=== PATIENT | female | born 1985 | race Caucasian/White ===

== ENCOUNTER 2016-06-27 21:20 | Emergency (ER) | payer OTHER ==
[2016-06-27 21:32] VITALS: BMI 35.7
--- NOTE | 2016-06-27 21:37 | PDOC ---
Rapid Medical Evaluation Chief Complaint: Lightheaded Medical Evaluation: Allergies Allergy/AdvReac Type Severity Reaction Status Date / Time shellfish derived Allergy Verified 06/27/16 21:30 Vital Signs Temp Pulse Resp BP Pulse Ox 98.4 F 113 H 20 155/83 99 06/27/16 21:30 06/27/16 21:30 06/27/16 21:30 06/27/16 21:30 06/27/16 21:30 06/27/16 21:35 RME Note: I have performed a brief, in-person evaluation of this patient . This patient presents with CC: 35 weeks ; with abd cramping; recently ; lightheadiness Pertinent PE findings are: Rapid HR, I have ordered: sent directly to L&D The patient will proceed to ED for further evaluation.
[2016-06-27 23:15] VITALS: TEMP 98.2
[2016-06-28] MEDS ORDERED: SODIUM CHLORIDE 1,000 ML IV STA (00:11)
[2016-06-28 00:59] LABS: URINE APPEARANCE CLEAR; URINE BILIRUBIN NEGATIVE (NEGATIVE); URINE BLOOD NEGATIVE (NEGATIVE); URINE COLOR YELLOW; URINE GLUCOSE (UA) NEGATIVE (NEGATIVE); URINE KETONE TRACE (NEGATIVE); URINE LEUK ESTERASE NEGATIVE (NEGATIVE); URINE NITRITE NEGATIVE (NEGATIVE); URINE UROBILINOGEN NEGATIVE E.U./dl (0.2-1.0)
[2016-06-28 01:07] LABS: URINE PROTEIN 1+ (NEGATIVE)
[2016-06-28 01:08] LABS: URINE MUCUS FEW; URINE RBC <1 /hpf (0-3); URINE WBC 4 /hpf (3-5)
[2016-06-28 01:09] LABS: BASOPHIL 0.2 % (0-2.0); EOSINOPHIL 1.1 % (0-4.5); MCH 31.9 pg (25.7-33.7); MEAN CELL VOLUME 93.7 fl (80-96); MEAN PLT VOLUME 7.5 fl (7.5-11.1); NEUTROPHILS 66.4 % (42.8-82.8); PLATELET COUNT 226 K/MM3 (134-434); RDW 13.6 % (11.6-15.6); WHITE BLOOD COUNT 9.3 K/mm3 (4.0-10.0)
--- NOTE | 2016-06-28 01:10 | PDOC ---
History of Present Illness - History of Present Illness Initial Comments: 06/28/16 01:40 The patient is a 31 year old female, 35 weeks , , with a significant past medical history of asthma and ectopic (2009), who presents to the emergency department with abdominal cramping, lightheadedness and nausea after being cleared by labor and delivery (RN Rosanne Marquez) with heart tone of 145 and patient's BP of 123/69. 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 She reports eating [place] food at 7:30PM and states she then developed a pain to her left groin. The patient denies vaginal bleeding. She denies chest pain, shortness of breath, headache and dizziness. She denies fever, chills, nausea, vomit, diarrhea and constipation. She denies dysuria, frequency, urgency and hematuria. Allergies: NKDA Past surgical history: appendectomy, cyst removed from right breast <Elena Garcia - Last Filed: 06/28/16 01:40> <Chen Hinojosa - Last Filed: 06/28/16 01:52> - General Chief Complaint: Labor Assessment Stated Complaint: 35WKS/LIGHTHEADED/BLURRY VISION Time Seen by Provider: 06/27/16 21:37 Past History <Elena Garcia - Last Filed: 06/28/16 01:40> - Past Medical History Asthma: Yes Psychiatric Problems: Yes (bipolar ADHD) - Surgical History Abdominal Surgery: Yes (ECTOPIC ) Appendectomy: Yes - Psycho/Social/Smoking Cessation Hx Anxiety: Yes Suicidal Ideation: No Smoking Status: Yes Smoking History: Never smoked Number of Cigarettes Smoked Daily: 5 Information on smoking cessation initiated: No <Chen Hinojosa - Last Filed: 06/28/16 01:52> - Past Medical History Allergies/Adverse Reactions: Allergies Allergy/AdvReac Type Severity Reaction Status Date / Time shellfish derived Allergy Verified 06/27/16 21:30 Home Medications: Ambulatory Orders Clonazepam [Klonopin] 0.5 mg PO DAILY 07/05/12 Topiramate [Topamax] 200 mg PO DAILY 07/05/12 Review of Systems - Review of Systems Able to Perform ROS?: Yes Comments:: CONSTITUTIONAL: Absent: fever, chills, diaphoresis, generalized weakness, malaise, loss of appetite HEENT: Absent: rhinorrhea, nasal congestion, throat pain, throat swelling, difficulty swallowing, mouth swelling, ear pain, eye pain, visual Changes CARDIOVASCULAR: (+) lightheadedness, Absent: chest pain, syncope, palpitations, irregular heart rate, peripheral edema RESPIRATORY: Absent: cough, shortness of breath, dyspnea with exertion, orthopnea, wheezing, stridor, hemoptysis GASTROINTESTINAL: (+) abdominal cramping, nausea, Absent: abdominal distension, vomiting, diarrhea, constipation, melena, hematochezia GENITOURINARY: Absent: dysuria, frequency, urgency, hesitancy, hematuria, flank pain, genital pain MUSCULOSKELETAL: Absent: myalgia, arthralgia, joint swelling SKIN: Absent: rash, itching, pallor HEMATOLOGIC/IMMUNOLOGIC: Absent: easy bleeding, easy bruising, lymphadenopathy, frequent infections ENDOCRINE: Absent: unexplained weight gain, unexplained weight loss, heat intolerance, cold intolerance NEUROLOGIC: Absent: headache, focal weakness or paresthesias, dizziness, unsteady gait, seizure, mental status changes, bladder or bowel incontinence PSYCHIATRIC: Absent: anxiety, depression, suicidal or homicidal ideation, hallucinations. <Elena Garcia - Last Filed: 06/28/16 01:40> *Physical Exam - Vital Signs Last Vital Signs Temp Pulse Resp BP Pulse Ox 98.2 F 117 H 20 122/61 99 06/27/16 21:50 06/27/16 21:50 06/27/16 21:50 06/27/16 21:50 06/27/16 21:30 - Physical Exam Comments: 06/28/16 01:42 GENERAL: Well developed, well nourished. Awake and alert. No acute distress. HEENT: Normocephalic, atraumatic. PERRLA, EOMI. No conjunctival pallor. Sclera are non- icteric. Moist mucous membranes. Oropharynx is clear. NECK: Supple. Full ROM. No JVD. Carotid pulses 2+ and symmetric, without bruits. No thyromegaly. No lymphadenopathy. CARDIOVASCULAR: Regular rate and rhythm. No murmurs, rubs, or gallops. Distal pulses are 2+ and symmetric. PULMONARY: No evidence of respiratory distress. Lungs clear to auscultation bilaterally. No wheezing, rales or rhonchi. ABDOMINAL: Gravid. Soft. Non-tender. Non-distended. No rebound or guarding. No organomegaly. Normoactive bowel sounds. MUSCULOSKELETAL Normal range of motion at all joints. No bony deformities or tenderness. No CVA tenderness. EXTREMITIES: No cyanosis. No clubbing. No edema. No calf tenderness. SKIN: Warm and dry. Normal capillary refill. No rashes. No jaundice. NEUROLOGICAL: Alert, awake, appropriate. Cranial nerves 2-12 intact. Normoreflexic in the upper and lower extremities. Normal speech. Toes are down-going bilaterally. Gait is normal without ataxia. PSYCHIATRIC: Cooperative. Good eye contact. Appropriate mood and affect. <Elena Garcia - Last Filed: 06/28/16 01:40> - Vital Signs Last Vital Signs Temp Pulse Resp BP Pulse Ox 98.2 F 117 H 20 122/61 99 06/27/16 21:50 06/27/16 21:50 06/27/16 21:50 06/27/16 21:50 06/27/16 21:30 <Chen Hinojosa - Last Filed: 06/28/16 01:52> ED Treatment Course - LABORATORY CBC & Chemistry Diagram: 06/28/16 00:28 06/28/16 00:28 - ADDITIONAL ORDERS Additional order review: Laboratory Results 06/28/16 06/28/16 00:28 00:28 Sodium 140 Potassium 3.6 Chloride 107 Carbon Dioxide 22 Anion Gap 11 BUN 7 Creatinine 0.5 L Creat Clearance w eGFR > 60 Random Glucose 97 Calcium 8.4 L Total Bilirubin 0.2 AST 18 ALT 19 Alkaline Phosphatase 72 Total Protein 6.1 L Albumin 2.7 L Urine Color Yellow Urine Appearance Clear Urine pH 5.0 D Ur Specific [place] 1.034 Urine Protein 1+ H Urine Glucose (UA) Negative Urine Ketones Trace H Urine Blood Negative Urine Nitrite Negative Urine Bilirubin Negative Urine Urobilinogen Negative Ur Leukocyte Esterase Negative Urine RBC <1 Urine WBC 4 Ur Epithelial Cells Rare Urine Mucus Few 06/28/16 00:28 RBC 3.75 MCV 93.7 MCHC 34.0 RDW 13.6 MPV 7.5 Neutrophils % 66.4 D Lymphocytes % 21.7 D Monocytes % 10.6 H Eosinophils % 1.1 Basophils % 0.2 - Medications Given in the ED: ED Medications Discontinued Medications Generic Name Dose Route Start Last Admin Trade Name Freq PRN Reason Stop Dose Admin Sodium Chloride 1,000 mls @ 1,000 mls/hr 06/28/16 00:11 06/28/16 00:36 Normal Saline - IV 06/28/16 01:10 1,000 mls/hr ASDIR STA Administration <Elena Garcia - Last Filed: 06/28/16 01:40> - LABORATORY CBC & Chemistry Diagram: 06/28/16 00:28 06/28/16 00:28 - ADDITIONAL ORDERS Additional order review: Laboratory Results 06/28/16 00:28 Urine Color Yellow Urine Appearance Clear Urine pH 5.0 D Ur Specific [place] 1.034 Urine Protein 1+ H Urine Glucose (UA) Negative Urine Ketones Trace H Urine Blood Negative Urine Nitrite Negative Urine Bilirubin Negative Urine Urobilinogen Negative Ur Leukocyte Esterase Negative - Medications Given in the ED: ED Medications Discontinued Medications Generic Name Dose Route Start Last Admin Trade Name Freq PRN Reason Stop Dose Admin Sodium Chloride 1,000 mls @ 1,000 mls/hr 06/28/16 00:11 06/28/16 00:36 Normal Saline - IV 06/28/16 01:10 1,000 mls/hr ASDIR STA Administration <Chen Hinojosa - Last Filed: 06/28/16 01:52> *DC/Admit/Observation/Transfer - Attestations Scribe Attestion: 06/28/16 01:42 Documentation prepared by Elena Garcia, acting as medical education coordinator for Chen Hinojosa MD <Elena Garcia - Last Filed: 06/28/16 01:40> <Chen Hinojosa - Last Filed: 06/28/16 01:52> Diagnosis at time of Disposition: Abdominal , Lightheadedness - Discharge Dispostion Disposition: HOME Condition at time of disposition: Stable - Referrals Referrals: Vini York MD [Staff Physician] - (TO ER FOR FOLLOW CARE FOR DIZZINESS, HEADACHE AND DIZZINESS. RETURN TO L/D IF RUPTURE OF MEMBRANES, CONTRACTIONS, VAGINAL BLEEDING OR DECREASED MOVEMENT. 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
[2016-06-28 01:26] LABS: ALBUMIN 2.7 g/dl (3.4-5.0); ALK PHOS 72 U/L (45-117); ANION GAP 11 (8-16); BILIRUBIN,TOTAL 0.2 mg/dL (0.2-1.0); CALCIUM 8.4 mg/dL (8.5-10.1); CO2 22 mmol/L (21-32); CREATININE 0.5 mg/dL (0.55-1.02); GLUCOSE,RANDOM 97 mg/dL (74-106); SGOT/AST 18 U/L (15-37); SGPT/ALT 19 U/L (12-78); TOT PROT 6.1 g/dl (6.4-8.2)
[2016-06-28 01:54] VITALS: BP 109/66; PULSE 81
== END 2016-06-28 01:54 | disposition home or self-care (01) ==
LOC: JER 21:20
PROC: 3E0337Z Introduction of Electrolytic and Water Balance Substance into Peripheral Vein, Percutaneous Approach (ICD-10-PCS; principal; 2016-06-27)
DX: O26.893 Other specified pregnancy related conditions, third trimester (principal); R42 Dizziness and giddiness; Z3A.35 35 weeks gestation of pregnancy
CPT/HCPCS: 36415; 80053; 81003; 81015; 85025; 96360; 99281-25

== ENCOUNTER 2016-07-23 03:15 | Inpatient (IN) | payer OTHER ==
[2016-07-23] MEDS ORDERED: DEXTROSE 5%-LACTATED RINGERS 500 ML IV SCH (03:30)
[2016-07-23] MEDS ORDERED: DEXTROSE 5%-LACTATED RINGERS 1,000 ML IV SCH ×2 (04:30→09:45)
[2016-07-23] MEDS ORDERED: BUTORPHANOL TARTRATE 1 MG/ML VIAL IVPB PRN (09:44)
[2016-07-23 10:04] LABS: BASOPHIL 0.1 % (0-2.0); EOSINOPHIL 0.1 % (0-4.5); MCH 31.7 pg (25.7-33.7); MCHC 34.1 g/dl (32.0-36.0); MEAN CELL VOLUME 93.1 fl (80-96); MEAN PLT VOLUME 6.8 fl (7.5-11.1); NEUTROPHILS 84.5 % (42.8-82.8); PLATELET COUNT 181 K/MM3 (134-434); RDW 13.3 % (11.6-15.6); WHITE BLOOD COUNT 10.7 K/mm3 (4.0-10.0)
[2016-07-23] MEDS ORDERED: SODIUM PHOSPHATE/NA BIPHOS 133 ML ENEMA PR ONE (10:15)
[2016-07-23 10:17] LABS: INR 1.02 (0.82-1.09); PROTHROMBIN TIME (PATIENT) 11.2 SEC (9.98-11.88)
[2016-07-23 10:20] LABS: ACTIVATED PTT 27.9 SECONDS (26.9-34.4)
[2016-07-23 10:24] LABS: CALCIUM 8.4 mg/dL (8.5-10.1); COCKROFT - GAULT 273.4195; CREATININE 0.5 mg/dL (0.55-1.02)
[2016-07-23] MEDS ORDERED: AMPICILLIN - 2G/100 ML IVPB ONE (10:30)
[2016-07-23] MEDS ORDERED: AMPICILLIN - 2 GM in SODIUM CHLORIDE 100 ML IVPB ONE (10:30)
[2016-07-23 10:46] VITALS: BMI 24.1
[2016-07-23] MEDS ORDERED: OXYTOCIN 15 UNITS/ LR 250 ML 250 ML IVPB SCH (11:10)
--- NOTE | 2016-07-23 11:28 | HP ---
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 Weeks Gestation by Dates: 39.6 ...EDC by Dates: 07/24/16 ...EDC by Sono: 07/31/16 (38.6 by sono ) Additional OB History: G6 2008 Ectopic Heme/Onc: No: Anemia Infectious Disease: Yes: STD's (h/o Chlamydia & HPV in past) Psych: Yes: Anxiety, Bipolar, Other (ADHD) - Past Surgical History Past Surgical History: Yes: None Hx Myomectomy: No Hx Transabdominal Cerclage: No - Smoking History Smoking history: Never smoked Have you smoked in the past 12 months: No Aproximately how many cigarettes per day: 5 - Alcohol/Substance Use Hx Alcohol Use: No History of Substance Use: reports: None Home Medications - Allergies Allergies/Adverse Reactions: Allergies Allergy/AdvReac Type Severity Reaction Status Date / Time shellfish derived Allergy Verified 07/23/16 10:54 - Home Medications Home Medications: Ambulatory Orders Ferrous Gluconate [Iron] 256 mg PO DAILY 07/23/16 [id number]/Iron Fumarate/FA/Dss [ 19 Tablet] 1 each PO DAILY 07/23/16 Physical Exam - Maternity Vital Signs: Vital Signs Temperature 97.9 F 07/23/16 07:15 Pulse Rate 95 H 07/23/16 07:15 Respiratory Rate 14 07/23/16 07:15 Blood Pressure 116/69 07/23/16 07:15 O2 Sat by Pulse Oximetry (%) Constitutional: Yes: Well Nourished, Severe Distress Eyes: Yes: WNL, PERRL HENT: Yes: WNL, Normocephalic Neck: Yes: WNL Cardiovascular: Yes: WNL, Regular Rate and Rhythm Lungs: Clear to auscultation Breast(s): Yes: WNL - Abdominal Exam/OB Fundal Height: 40 Number of Fetuses: Single Presentation: Vertex Contractions: Yes Regularity: Irregular (3-5-6 min) Intensity: Mild/Mod Monitor Mode: External Heart Rate (range): 125 Heart Rate Location: [facility] Category: I Accelerations: None Decelerations: None - Vaginal Exam/OB Vaginal Bleediing: Bloody Show Speculum Exam: No Dilatation (cm): 2-3 Effacement (%): 70 Amniotic Membrane Status: Intact Presentation: Vertex/Position (exam at 9.35 am) Station: -3 - Physical Exam Musculoskeletal: Yes: WNL Extremities: Yes: WNL. No: Calf Tenderness Edema: Yes Edema: LLE: 1+, RLE: 1+ Integumentary: Yes: Tattoos Deep Tendon Reflex Grade: Normal +2 ...Motor Strength: WNL Psychiatric: Yes: WNL, Alert, Oriented - Labs Lab Results: CBC, BMP 07/23/16 09:50 07/23/16 09:50 Problem List - Problems (1) 39 weeks gestation of Code(s): Z3A.39 - 39 WEEKS GESTATION OF (2) Labor established Code(s): ZKC4932 - Assessment/Plan 31 Yrs , ectopic -1 , 38.6 weeks by sono, 39.6 weeks by dtes admitted in labor GBS pos Plan Gbs prophylaxis Rx IV Ampicillin Trial vag, del IV stadol prn for pain, , epidural prn
[2016-07-23] MEDS ORDERED: ELECTROLYTE-148 SOLN 1,000 ML IV SCH (13:00)
--- NOTE | 2016-07-23 13:04 | PN ---
Progress Note, Labor Vaginal Exam #1 Labor Exam Date: 07/23/16 Labor Exam Time: 13:00 Heart Rate (range): 140 Dilatation: 7 Effacement (%): 100 Amniotic Membrane Status: Intact Presentation: Vertex/Position Station: -1 Remarks: uc q2-3 min FHR cat-1 stadol 2 mg iv was given requests for epidural Selected Entries 07/23/16 07/23/16 07/23/16 10:00 11:00 12:00 Temperature 98.0 F Pulse Rate 98 H 97 H 95 H Blood Pressure 122/64 128/62 130/58 Blood Pressure 82 Mean Vaginal Exam #2 Labor Exam Date: 07/23/16 Labor Exam Time: 15:00 Heart Rate (range): 130 Dilatation: antlip Effacement (%): 100 Amniotic Membrane Status: Ruptured (AROM clear moderate) Presentation: Vertex/Position Station: +2 Remarks: fhr cat-1 UC q 2 min 1.25 pm epidural was given plan await for passive descent. pt has no sensation yes Selected Entries 07/23/16 14:50 Pulse Rate 91 H Respiratory 14 Rate Blood Pressure 112/65 Vaginal Exam #3 Labor Exam Date: 07/23/16 Labor Exam Time: 15:45 Heart Rate (range): 130 Dilatation: 10 Effacement (%): 100 Amniotic Membrane Status: Ruptured Presentation: Vertex/Position Station: +3 Remarks: fhr cat-1 uc q1-2 min pt encouraged to push
[2016-07-23] MEDS ORDERED: FENTANYL/BUPIVACAINE/NS/PF - PCEA - 50 ML DISP.SYRIN EP SCH (13:45)
[2016-07-23] MEDS ORDERED: AMPICILLIN - 1G/100 ML IVPB SCH (14:30)
[2016-07-23] MEDS ORDERED: BENZOCAINE 20% 57 GM BOTTLE TP PRN (16:36)
[2016-07-23] MEDS ORDERED: BENZOCAINE 28 GM HEMORRHOIDAL OINTMENT TP PRN (16:36)
[2016-07-23] MEDS ORDERED: WITCH HAZEL 50% (TUCKS) 40 PAD/JAR PAD TP PRN (16:36)
[2016-07-23] MEDS ORDERED: oxyCODONE HCL 5 MG TABLET PO PRN (16:36)
[2016-07-23] MEDS ORDERED: BISACODYL 10 MG SUPP.RECT RC PRN (16:36)
[2016-07-23] MEDS ORDERED: METHYLERGONOVINE MALEATE 0.2 MG/1 ML AMP IM PRN (16:36)
[2016-07-23] MEDS ORDERED: D5W-LR W/ 20 UNITS OXYTOCIN 1,000 ML IV SCH (16:45)
--- NOTE | 2016-07-23 16:47 | PN ---
Delivery - Delivery Vaginal Delivery: No Problems, Spontaneous Type of Anesthesia: Epidural EBL (cc): 350 (catheter urine out put 200ml jun color ) Delivery, Single - Stages of Labor Date 1st Stage Initiatied: 07/23/16 Time 1st Stage Initiated: 05:00 Date 2nd Stage Initiated: 07/23/16 Time 2nd Stage Initiated: 15:45 Date of Delivery: 07/23/16 Time of Delivery: 16:05 Date Placenta Delivered: 07/23/16 Time Placenta Delivered: 16:07 Placenta: Yes: Spontaneous, Uterine Exploration - Condition of Gender: Male Weight: 7 lb 5 oz Position: OA Total Hours ROM (Hrs/Mins): 1hr 7min - 1 Minute Total Score: 9 5 Minutes Total Score: 10 - [place] Feeding Plan Initial Plan: Elected not to breastfeed exclusively throughout hospitalization Remarks - Remarks Remarks: 31 yrs , ectopic -1 38.6/7 weeks by sono, 39.6/7 weeks by dates admitted in labor PNC at [address] [place] [address] Gbs Pos , rx IV ampicillin nx2 doses for prophylaxis given intrapartum . Pitocin augmentation was started intrapartum course uneventful
[2016-07-23] MEDS: IBUPROFEN 600 MG TABLET (FP) PO PRN (18:02)
[2016-07-23] MEDS: ACETAMINOPHEN 325 MG TABLET (FP) PO PRN (18:02)
[2016-07-23] MEDS: FERROUS SO4 325 MG TABLET (FP) PO SCH (18:02)
[2016-07-24] MEDS: IBUPROFEN 600 MG TABLET (FP) PO PRN ×2 (03:51→14:15)
[2016-07-24] MEDS: ACETAMINOPHEN 325 MG TABLET (FP) PO PRN ×2 (03:52→14:16)
[2016-07-24 07:31] LABS: BASOPHIL 0.4 % (0-2.0); EOSINOPHIL 0.5 % (0-4.5); MCHC 33.2 g/dl (32.0-36.0); MEAN CELL VOLUME 93.5 fl (80-96); MEAN PLT VOLUME 7.3 fl (7.5-11.1); NEUTROPHILS 71.8 % (42.8-82.8); PLATELET COUNT 167 K/MM3 (134-434); RDW 13.4 % (11.6-15.6); WHITE BLOOD COUNT 12.7 K/mm3 (4.0-10.0)
--- NOTE | 2016-07-24 07:40 | PN ---
Post Progress Note - Subjective Subjective: no complains bleeding moderate, no c/o cramps no c/o pp blues Post Day: 1 Type of Delivery: Vital Signs: Vital Signs Temperature 98.3 F 07/24/16 04:53 Pulse Rate 82 07/24/16 04:53 Respiratory Rate 20 07/24/16 04:53 Blood Pressure 112/62 07/24/16 04:53 O2 Sat by Pulse Oximetry (%) 99 07/23/16 17:00 Breast Exam: Yes: Soft, Other (declines to BF ). No: Engorged Uterus: Yes: Fundus Firm, Fundus below umbilicus, Non-tender Lochia, amount: Moderate Extremities: Yes: Calves non-tender, Edema Perineum: Yes: Laceration Activity: Ambulating - Labs Labs: CBC WBC 10.7 K/mm3 (4.0-10.0) H 07/23/16 09:50 RBC 3.88 M/mm3 (3.60-5.2) 07/23/16 09:50 Hgb 12.3 GM/dL (10.7-15.3) 07/23/16 09:50 Hct 36.1 % (32.4-45.2) 07/23/16 09:50 MCV 93.1 fl (80-96) 07/23/16 09:50 MCHC 34.1 g/dl (32.0-36.0) 07/23/16 09:50 RDW 13.3 % (11.6-15.6) 07/23/16 09:50 Plt Count 181 K/MM3 (134-434) 07/23/16 09:50 MPV 6.8 fl (7.5-11.1) L 07/23/16 09:50 Neutrophils % 84.5 % (42.8-82.8) H D 07/23/16 09:50 Lymphocytes % 9.0 % (8-40) D 07/23/16 09:50 Monocytes % 6.3 % (3.8-10.2) 07/23/16 09:50 Eosinophils % 0.1 % (0-4.5) D 07/23/16 09:50 Basophils % 0.1 % (0-2.0) 07/23/16 09:50 Problem List - Problems (1) 39 weeks gestation of Code(s): Z3A.39 - 39 WEEKS GESTATION OF (2) Labor established Code(s): BJS8740 - Assessment/Plan stable. pp cbc pending, pt was on meds for bipolar disorder before oregn, but stopped during pregn she did no f/u with psychiatrist during pregn, she did not feel any necessity . she will f/u pp prn psyche consultis requested discharge tomorrow.
[2016-07-24] MEDS: FERROUS SO4 325 MG TABLET (FP) PO SCH ×2 (08:46→17:51)
[2016-07-24] MEDS: PRENATAL VITAMINS W/ FOLIC ACID TABLET (FP) PO SCH (09:11)
[2016-07-24] MEDS ORDERED: SENNOSIDES/DOCUSATE COMBO (SENNA PLUS) TABLET (UD) PO PRN (22:00)
--- NOTE | 2016-07-25 00:12 | PN ---
Post Progress Note Post Day: 2 Type of Delivery: Vital Signs: Vital Signs Temperature 98.0 F 07/24/16 20:57 Pulse Rate 80 07/24/16 20:57 Respiratory Rate 18 07/24/16 20:57 Blood Pressure 114/70 07/24/16 20:57 O2 Sat by Pulse Oximetry (%) 99 07/23/16 17:00 Breast Exam: Yes: Soft Uterus: Yes: Fundus Firm Abdomen/GI: Yes: Abdomen soft Lochia: Yes: Rubra Lochia, amount: Small Perineum: Yes: Intact Activity: Ambulating - Labs Labs: CBC WBC 12.7 K/mm3 (4.0-10.0) H 07/24/16 06:25 RBC 3.66 M/mm3 (3.60-5.2) 07/24/16 06:25 Hgb 11.3 GM/dL (10.7-15.3) 07/24/16 06:25 Hct 34.2 % (32.4-45.2) 07/24/16 06:25 MCV 93.5 fl (80-96) 07/24/16 06:25 MCHC 33.2 g/dl (32.0-36.0) 07/24/16 06:25 RDW 13.4 % (11.6-15.6) 07/24/16 06:25 Plt Count 167 K/MM3 (134-434) 07/24/16 06:25 MPV 7.3 fl (7.5-11.1) L 07/24/16 06:25 Neutrophils % 71.8 % (42.8-82.8) 07/24/16 06:25 Lymphocytes % 15.6 % (8-40) D 07/24/16 06:25 Monocytes % 11.7 % (3.8-10.2) H D 07/24/16 06:25 Eosinophils % 0.5 % (0-4.5) D 07/24/16 06:25 Basophils % 0.4 % (0-2.0) D 07/24/16 06:25 Assessment/Plan as above dc home today
[2016-07-25] MEDS: IBUPROFEN 600 MG TABLET (FP) PO PRN ×2 (01:40→07:31)
[2016-07-25] MEDS: ACETAMINOPHEN 325 MG TABLET (FP) PO PRN ×2 (01:40→07:32)
[2016-07-25] MEDS: FERROUS SO4 325 MG TABLET (FP) PO SCH (07:33)
[2016-07-25 08:41] VITALS: BP 102/57; PULSE 79; TEMP 98.8
[2016-07-25] MEDS: PRENATAL VITAMINS W/ FOLIC ACID TABLET (FP) PO SCH (09:46)
--- NOTE | 2016-07-25 11:27 | CON.PSY ---
Psychiatry Consult Chief Complaint: I have seen a Psychiatrist for mood disorders byt, I am ok now. - Previous Psychiatric Treatment Outpatient: More than 6 mos ago Inpatient: None - Previous Substance Abuse Treatment Outpatient: None Inpatient: None - Reason for Previous Treatment Reason for Previous Treatment: Major Depression - Family History Family History: Unremarkable - Current Medications Current Medications: Active Medications Acetaminophen (Tylenol -) 650 mg PO Q3H PRN PRN Reason: PAIN Last Admin: 07/25/16 07:32 Dose: 650 mg Benzocaine (Americaine Ointment -) 1 applic TP PRN PRN PRN Reason: PAIN Benzocaine (Americaine 20% [place] -) 1 spray TP PRN PRN PRN Reason: PAIN Bisacodyl (Dulcolax Suppository -) 10 mg RC PRN PRN PRN Reason: CONSTIPATION Ferrous Sulfate (Feosol -) 325 mg PO BIDWM [facility] Last Admin: 07/25/16 07:33 Dose: 325 mg Dextrose/Lactated Ringer's (Pitocin 20 Units In D5-Lr -) 1,000 mls @ 125 mls/ hr IV ASDIR [facility] Last Admin: 07/23/16 16:07 Dose: 125 mls/hr Parenteral Electrolytes (Plasma-Lyte 148 -) 1,000 mls @ 125 mls/hr IV ASDIR [facility] Last Admin: 07/23/16 17:09 Dose: 125 mls/hr Ibuprofen (Motrin -) 600 mg PO Q4H PRN PRN Reason: PAIN Last Admin: 07/25/16 07:31 Dose: 600 mg Methylergonovine Maleate (Methergine Injection -) 0.2 mg IM Q4H PRN PRN Reason: EXCESSIVE BLEEDING (L&D) Last Admin: 07/23/16 18:46 Dose: 0.2 mg Oxycodone HCl (Roxicodone -) 5 mg PO Q6H PRN PRN Reason: PAIN Multivit/Folic Acid/Iron ( Vitamins (Sjr) -) 1 tab PO DAILY [facility] Last Admin: 07/25/16 09:46 Dose: 1 tab Senna/Docusate Sodium (Pericolace -) 2 tablet PO HS PRN PRN Reason: CONSTIPATION Witch Lala/Glycerin (Tucks Pads -) 1 pad TP PRN PRN PRN Reason: PAIN - Allergies Allergies: Allergies Allergy/AdvReac Type Severity Reaction Status Date / Time shellfish derived Allergy Verified 07/23/16 10:54 - Current Living Status Usual Living Arrangement: With Significant Other - Current Mental Status Evaluation Appearance: Well Groomed Attitude: Cooperative - Affect Affect: Full Range Appropriateness: Appropriate to Content - Speech/Language Expressive: Coherent Receptive: Age Appropriate Comprehension of Spoken Words - Psychomotor Activity Psychomotor Activity: Normal - Thought Process Thought Process: Intact - Thought Content Hallucinations: Absent Delusions: Absent - Self Perception Self Perception: No Impairment - Cognition Attention: Alert Orientation: Time Memory, Immediate Recall: Intact Memory, Short Term: 3/3 Memory, Remote with Promptin/3 - Concentration Serial Sevens Intact: Yes Simple Calculations Intact: Yes - Abstraction Proverb Interpretation: Intact Judgement: Intact - Insight Insight: Intact - Impulse Control Impulse Control: Good Control - Suicidal Ideation Suicidal Ideation: No - Homicidal Ideation Homicidal Ideation: No Assessment/Plan 1) Discharge when medically stable. @) will see her pvt psych if symptoms return.
--- NOTE | 2016-07-26 18:39 | DS ---
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 Vital Signs: Vital Signs Temperature 98.8 F 07/25/16 07:30 Pulse Rate 79 07/25/16 07:30 Respiratory Rate 18 07/25/16 07:30 Blood Pressure 102/57 07/25/16 07:30 O2 Sat by Pulse Oximetry (%) 99 07/23/16 17:00 Constitutional: Yes: Well Nourished Eyes: Yes: WNL HENT: Yes: WNL Neck: Yes: WNL Cardiovascular: Yes: WNL Respiratory: Yes: WNL Gastrointestinal: Yes: WNL ...Rectal Exam: Yes: WNL Renal/: Yes: WNL Pelvis: Yes: WNL ....Post : Yes: Uterus firm, Uterus non-tender, Moderate lochia rubra ( 1st degree laceration sutured) Breast(s): Yes: WNL, Left (not BF) Musculoskeletal: Yes: WNL Extremities: Yes: WNL. No: Calf Tenderness Edema: No Integumentary: Yes: Tattoos Neurological: Yes: WNL, Alert, Oriented ...Motor Strength: WNL Psychiatric: Yes: WNL, Alert, Oriented, Other (h/o bipolar disorder, not under psyche care since pregn, stopped all meds. psyche consult was done.she will reurn to T psyche MD if symptoms return) Labs: CBC, BMP 07/24/16 06:25 07/23/16 09:50 Delivery - Delivery Vaginal Delivery: No Problems, Spontaneous Type of Anesthesia: Epidural Episiotomy/Laceration: Vaginal Extension/lac, 1st degree EBL (cc): 350 (catheter urine out put 200ml jun color ) Delivery, Single - Stages of Labor Date 1st Stage Initiatied: 07/23/16 Time 1st Stage Initiated: 05:00 Date 2nd Stage Initiated: 07/23/16 Time 2nd Stage Initiated: 15:45 Date of Delivery: 07/23/16 Time of Delivery: 16:05 Time Placenta Delivered: 16:07 Placenta: Yes: Spontaneous, Uterine Exploration - 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 Pitocin augmentation was started intrapartum course uneventful . post course uneventful. discharge 07/25/16 Discharge Summary Reason For Visit: LABOR Condition: Stable - Instructions Diet, Activity, Other Instructions: Post Instructions DIET: Continue good diet high in protein, calcium, and iron rich foods. Drink at least eight (8) glasses of water daily in addition to other fluids. Regular diet MEDICATIONS: Continue vitamins and iron as previously directed. Motrin and Tylenol may be taken for minor discomfort. ACTIVITY: Mild to moderate exercise may be started in two (2) weeks. Take frequent rest periods. Resume normal activity after six (6) week check up. WOUND CARE OF OPERATIVE SITE: Continue use of perineal bottle until vaginal discharge stops. Keep area clean. Shower daily. Keep abdominal wound dry. Report any drainage or redness to physician. Tub baths, tampons and douches are not permitted for [address] Bottle feeding BREAST CARE: (For those that are not breast feeding): If engorgement occurs: Wear tight fitting bra. Take Tylenol or Motrin for pain. Apply cold packs (ice in bags to each breast ) FAMILY PLANNING: There are many control alternatives to pursue and they should be discussed at your first office visit. You may resume sexual activity after your six (6) week check up. (Remember, breast feeding is not a contraceptive) NEXT PHYSICIAN APPOINTMENT: Be certain to call for a six (6) week appointment, unless otherwise directed. Follow with your Psychiatrist Call Clinic or got to Emergency Dept if you have any of the following: Heavy vaginal bleeding Painful urination Leg pain Unusual odor noted to vaginal bleeding High fever Red streaking noted on breast Referrals: Genna Pressley MD [Staff Physician] - Disposition: HOME - Home Medications Comprehensive Discharge Medication List: Ambulatory Orders Ferrous Gluconate [Iron] 256 mg PO DAILY 07/23/16 [id number]/Iron Fumarate/FA/Dss [ 19 Tablet] 1 each PO DAILY 07/23/16 Acetaminophen [Tylenol .Regular Strength -] 650 mg PO Q3H PRN #0 tablet Ibuprofen [Motrin -] 200 mg PO Q4H PRN #0 tablet 07/24/16 Vitamins (Sjr) - 1 tab PO DAILY tablet 07/24/16
== END 2016-07-25 12:05 | disposition home or self-care (01) | DRG 560 ==
LOC: JDEL 03:15 → JLDR 09:35 → J3W 17:21
PROVIDERS: ADMIT Obstetrics & Gynecology; ATTEND Obstetrics & Gynecology
PROC: 10E0XZZ Delivery of Products of Conception, External Approach (ICD-10-PCS; principal; 2016-07-23)
PROC: 0HQ9XZZ Repair Perineum Skin, External Approach (ICD-10-PCS; 2016-07-23)
PROC: 0W8NXZZ Division of Female Perineum, External Approach (ICD-10-PCS; 2016-07-23)
DX: O70.0 First degree perineal laceration during delivery (principal); Z22.330 Carrier of Group B streptococcus; Z3A.39 39 weeks gestation of pregnancy; Z37.0 Single live birth
CPT/HCPCS: 36415; 59025; 59409; 80048; 85025; 85610; 85730; 86593; 86850; 86900; 86901

== ENCOUNTER 2021-08-27 05:57 | Emergency (ER) | payer OTHER ==
[2021-08-27 06:07] VITALS: BP 116/74; PULSE 77; TEMP 97.6; BMI 29.1
[2021-08-27 08:39] LABS: URINE APPEARANCE TURBID; URINE BILIRUBIN MODERATE (NEGATIVE); URINE COLOR RED; URINE GLUCOSE (UA) NEGATIVE (NEGATIVE)
[2021-08-27 08:40] LABS: URINE PROTEIN 3+ (NEGATIVE); URINE UROBILINOGEN 0.2 mg/dL (0.2-1.0)
[2021-08-27 09:17] LABS: EPI CELLS 7 /uL (0-25.1); HYALINE CASTS 2 /uL (0-3.1); PH,URINE 7.5 (5.0-8.0); URINE APPEARANCE CLOUDY; URINE BACTERIA >9,000 /uL (0-1359); URINE BILIRUBIN NEGATIVE (NEGATIVE); URINE COLOR YELLOW; URINE GLUCOSE (UA) NEGATIVE (NEGATIVE); URINE KETONE NEGATIVE (NEGATIVE); URINE LEUK ESTERASE 3+ (NEGATIVE); URINE NITRITE POSITIVE (NEGATIVE); URINE PROTEIN NEGATIVE (NEGATIVE); URINE UROBILINOGEN 0.2 mg/dL (0.2-1.0); URINE WBC 532 /uL (0-25.8)
[2021-08-27 09:44] LABS: HCG,QUALITATIVE URINE NEGATIVE
[2021-08-27 10:11] LABS: URINE RBC 981.1 /uL (0-23.9); YEAST NEGATIVE (NEGATIVE)
== END 2021-08-27 09:57 | disposition home or self-care (01) ==
LOC: JER 05:57
DX: N30.01 Acute cystitis with hematuria (principal)
CPT/HCPCS: 81003; 84703; 87086; 87186; 99283-25

== ENCOUNTER 2022-01-21 04:24 | Day surgery (SDC) | payer OTHER ==
[2022-01-19 11:45] VITALS: BMI 29.9
[2022-01-21] MEDS ORDERED: MIDAZOLAM HCL 2 MG/2 ML SINGLE DOSE VIAL ONE (10:03)
[2022-01-21] MEDS ORDERED: PROMETHAZINE HCL 25 MG/1 ML VIAL IVPUSH PRN (10:07)
[2022-01-21] MEDS ORDERED: oxyCODONE HCL 5 MG TABLET PO PRN ×2 (10:07)
[2022-01-21] MEDS ORDERED: ONDANSETRON 4 MG/2 ML VIAL IVPUSH PRN (10:07)
[2022-01-21] MEDS ORDERED: LACTATED RINGERS SOLUTION 1,000 ML IV SCH (10:15)
[2022-01-21] MEDS ORDERED: SUCCINYLCHOLINE CHLORIDE 200 MG/10 ML SYRINGE ONE (10:15)
[2022-01-21] MEDS ORDERED: PROPOFOL 20 ML ONE (10:15)
[2022-01-21] MEDS ORDERED: LIDOCAINE HCL/PF 2% SDV 5ML VIAL ONE (10:15)
[2022-01-21] MEDS ORDERED: DEXAMETHASONE SOD PHOSPHATE 4 MG/1 ML VIAL ONE (10:24)
[2022-01-21] MEDS ORDERED: ONDANSETRON 4 MG/2 ML VIAL ONE (10:24)
[2022-01-21] MEDS ORDERED: KETOROLAC TROMETHAMINE 30 MG/1 ML VIAL ONE (10:25)
[2022-01-21] MEDS ORDERED: BUPIVACAINE HCL/PF 0.25% (2.5MG/ML) 10 ML VIAL ONE (10:34)
[2022-01-21] MEDS ORDERED: BUPIVACAINE HCL/PF 0.25% (2.5MG/ML) 10 ML VIAL IJ ONE (10:36)
[2022-01-21 12:38] VITALS: BP 113/69; RESP 20; TEMP 97.4
[2022-01-21 15:49] VITALS: PULSE 60
== END 2022-01-21 13:15 | disposition home or self-care (01) ==
LOC: JASU-SURG 04:24
PROVIDERS: ATTEND Obstetrics & Gynecology
PROC: 0UT74ZZ Resection of Bilateral Fallopian Tubes, Percutaneous Endoscopic Approach (ICD-10-PCS; principal; 2022-01-21 09:30)
PROC: 0UPD7HZ Removal of Contraceptive Device from Uterus and Cervix, Via Natural or Artificial Opening (ICD-10-PCS; 2022-01-21 09:30)
DX: Z30.2 Encounter for sterilization (principal); Z30.432 Encounter for removal of intrauterine contraceptive device
CPT/HCPCS: 81025; 88300-TC; 88302-TC; 88305-TC; 94760

== ENCOUNTER 2022-06-19 14:17 | Emergency (ER) | payer OTHER ==
[2022-06-19 14:23] VITALS: BP 122/64; PULSE 85; RESP 18; TEMP 97.9; BMI 29.9
[2022-06-19 16:55] LABS: PH,URINE 5.5 (5.0-8.0); URINE APPEARANCE CLEAR; URINE BILIRUBIN NEGATIVE (NEGATIVE); URINE COLOR YELLOW; URINE GLUCOSE (UA) NEGATIVE (NEGATIVE); URINE KETONE TRACE (NEGATIVE); URINE LEUK ESTERASE NEGATIVE (NEGATIVE); URINE NITRITE NEGATIVE (NEGATIVE); URINE PROTEIN NEGATIVE (NEGATIVE); URINE UROBILINOGEN 0.2 mg/dL (0.2-1.0)
== END 2022-06-19 18:33 | disposition home or self-care (01) ==
LOC: JER 14:17
DX: R10.30 Lower abdominal pain, unspecified (principal)
CPT/HCPCS: 81003; 84703; 87086; 99283-25

== ENCOUNTER 2022-07-26 22:57 | Emergency (ER) | payer OTHER ==
[2022-07-26 23:15] VITALS: BMI 29.1
[2022-07-27 00:05] LABS: THROAT:GRP A STREP NOT DETECTED (NOTDETECTED)
[2022-07-27] MEDS ORDERED: IBUPROFEN 400 MG TABLET (FP) PO ONE ×2 (00:41→01:06)
[2022-07-27] MEDS ORDERED: PHENYLEPHRINE 0.25% NASAL SPRAY 15 ML BOTTLE NS SCH (00:45)
[2022-07-27 01:05] VITALS: BP 115/73; PULSE 77; RESP 19; TEMP 98.2
[2022-07-27] MEDS ORDERED: SODIUM CHLORIDE NASAL SPRAY 44 ML BOTTLE NS ONE (01:05)
== END 2022-07-27 01:22 | disposition home or self-care (01) ==
LOC: JER 22:57
DX: J06.9 Acute upper respiratory infection, unspecified (principal); R05.1 Acute cough; R09.81 Nasal congestion; R07.0 Pain in throat; Z20.822 Contact with and (suspected) exposure to COVID-19
CPT/HCPCS: 0241U-QW; 87651; 99283-25